=== PATIENT | male | born 1975 | race American Indian/Alaskan Native ===

== ENCOUNTER 2020-06-22 18:44 | Emergency (ER) | payer OTHER ==
--- NOTE | 2020-06-22 20:31 | XRay Report ---
CHEST 2 VIEWS INDICATION / CLINICAL INFORMATION: MAIN. Rib pain cough COMPARISON: None available. FINDINGS: SUPPORT DEVICES: None. HEART / MEDIASTINUM: No significant abnormality. LUNGS / PLEURA: No significant pulmonary or pleural abnormality. No pneumothorax. ADDITIONAL FINDINGS: No significant additional findings. Specifically, no evidence of displaced rib f racture. IMPRESSION: 1. No acute findings. Specifically, no evidence of displaced rib fracture or confluent infiltrate. Signer Name: Franko Gregg MD Signed: 06/22/2020 8:27 PM Workstation Name: [id number]
[2020-06-22 21:16] VITALS: BP 117/59
[2020-06-22] MEDS ORDERED: IBUPROFEN 800 MG TAB PO ONE (21:26)
[2020-06-22] MEDS ORDERED: HYDROcodone/ACETAMINOPHEN 5-325 MG TAB PO ONE (21:26)
--- NOTE | 2020-06-22 21:33 | Emergency Department Report ---
ED General Adult HPI - General Chief complaint: Chest Pain Stated complaint: RIB PAIN Time Seen by Provider: 06/22/20 20:45 Source: patient Mode of arrival: Ambulatory Limitations: No Limitations - History of Present Illness Initial comments: CC: "I felt something pop." HPI: This is a 44 yo male with hx of HTN who presents with right lower rib cage pain which occurred suddenly after sneezing. Mr. Kolb has had cough for 2 months since diagnosis of COVID-19. With cough he has had mild right rib cage pain for the past 2 months. THis pain was severe sharp. Worse with palpation and movement. He came immediately to the ED. No recent travel. -: Sudden, This evening Location: chest Radiation: non-radiation Severity scale (0 -10): 8 Quality: sharp Improves with: rest Worsens with: movement, other (Palpation, inspiration) Associated Symptoms: denies other symptoms - Related Data Previous Rx's Medication Instructions Recorded Last Taken Type HYDROcodone/APAP 5-325 [[place] 1 each PO Q6HR PRN #10 tablet 06/22/20 Unknown Rx 5/325] Ibuprofen [Motrin 400 MG tab] 400 mg PO TID 5 Days #15 tablet 06/22/20 Unknown Rx Allergies Allergy/AdvReac Type Severity Reaction Status Date / Time aspirin Allergy Vomiting Verified 06/22/20 21:17 ED Review of Systems ROS: Stated complaint: RIB PAIN Other details as noted in HPI Comment: All other systems reviewed and negative Constitutional: denies: fever, malaise Respiratory: denies: cough, shortness of breath Cardiovascular: chest pain Gastrointestinal: denies: abdominal pain, nausea, vomiting ED Past Medical Hx - Past Medical History Previous Medical History?: Yes Hx Hypertension: Yes Hx Kidney Stones: ("cholesterol issues") - Surgical History Past Surgical History?: Yes Hx Cholecystectomy: Yes - Social History Smoking Status: Never Smoker Substance Use Type: None - Medications Home Medications: Home Medications Medication Instructions Recorded Confirmed Last Taken Type HYDROcodone/APAP 5-325 [[place] 1 each PO Q6HR PRN #10 tablet 06/22/20 Unknown Rx 5/325] Ibuprofen [Motrin 400 MG tab] 400 mg PO TID 5 Days #15 tablet 06/22/20 Unknown Rx ED Physical Exam - General Limitations: No Limitations General appearance: alert, in no apparent distress, other (patient winces with position change) - Head Head exam: Present: atraumatic, normocephalic - Eye Eye exam: Present: normal appearance - ENT ENT exam: Present: mucous membranes moist - Neck Neck exam: Present: normal inspection, full ROM - Respiratory Respiratory exam: Present: normal lung sounds bilaterally, chest wall tenderness (right midaxillary line lower rib cage). Absent: respiratory distress, wheezes, rales, rhonchi - Cardiovascular Cardiovascular Exam: Present: regular rate, normal rhythm, normal heart sounds. Absent: systolic murmur, diastolic murmur, rubs, gallop - GI/Abdominal GI/Abdominal exam: Present: soft, normal bowel sounds. Absent: distended, tenderness, guarding, rebound - Rectal Rectal exam: Present: deferred - Extremities Exam Extremities exam: Present: normal inspection - Neurological Exam Neurological exam: Present: alert, oriented X3 - Psychiatric Psychiatric exam: Present: normal affect, normal mood - Skin Skin exam: Present: warm, dry, intact, normal color. Absent: rash ED Course Vital Signs 06/22/20 06/22/20 18:50 21:15 Temperature 97.6 F 99 F Pulse Rate 74 59 L Respiratory 20 20 Rate Blood Pressure 156/78 Blood Pressure 117/59 [Right] O2 Sat by Pulse 100 100 Oximetry ED Medical Decision Making - Radiology Data Radiology results: report reviewed CHEST 2 VIEWS INDICATION / CLINICAL INFORMATION: MAIN. Rib pain cough COMPARISON: None available. FINDINGS: SUPPORT DEVICES: None. HEART / MEDIASTINUM: No significant abnormality. LUNGS / PLEURA: No significant pulmonary or pleural abnormality. No pneumothorax. ADDITIONAL FINDINGS: No significant additional findings. Specifically, no evidence of displaced rib fracture. IMPRESSION: 1. No acute findings. Specifically, no evidence of displaced rib fracture or confluent infiltrate. - Medical Decision Making right chest wall pain after sneezing. No evidence of PTX, rib dislocation or rib fracture. CXR no acute findings according to radiologist. chest wall strain: clinical impression PERC negative for PE rx: ibuprofen, norco Vital Signs - 24 hr 06/22/20 06/22/20 18:50 21:15 Temperature 97.6 F 99 F Pulse Rate 74 59 L Respiratory 20 20 Rate Blood Pressure 156/78 Blood Pressure 117/59 [Right] O2 Sat by Pulse 100 100 Oximetry Critical care attestation.: If time is entered above; I have spent that time in minutes in the direct care of this critically ill patient, excluding procedure time. ED Disposition Clinical Impression: Chest wall muscle strain Disposition: DC-01 TO HOME OR SELFCARE Is pt being admited?: No Does the pt Need Aspirin: No Condition: Stable Instructions: Thoracic Pain (ED), Chest Pain (ED) Prescriptions: Ibuprofen [Motrin 400 MG tab] 400 mg PO TID 5 Days #15 tablet HYDROcodone/APAP 5-325 [[place] 5/325] 1 each PO Q6HR PRN #10 tablet PRN Reason: Pain
== END 2020-06-22 21:48 | disposition home or self-care (01) ==
LOC: ED 18:44
DX: S29.011A Strain of muscle and tendon of front wall of thorax, initial encounter (principal); I10 Essential (primary) hypertension; Z88.6 Allergy status to analgesic agent; Z79.899 Other long term (current) drug therapy; Z90.49 Acquired absence of other specified parts of digestive tract; X58.XXXA Exposure to other specified factors, initial encounter; Y93.89 Activity, other specified; Y92.89 Other specified places as the place of occurrence of the external cause; Y99.8 Other external cause status
CPT/HCPCS: 71046

== ENCOUNTER 2020-10-21 22:30 | Emergency (ER) | payer OTHER ==
[2020-10-21] MEDS ORDERED: ASPIRIN 325 MG TAB PO ONE (22:53)
--- NOTE | 2020-10-21 22:56 | Emergency Department Report ---
ED Chest Pain HPI - General Chief Complaint: Chest Pain Stated Complaint: CHEST PAIN Time Seen by Provider: 10/21/20 22:55 Source: patient Mode of arrival: Ambulatory Limitations: No Limitations - History of Present Illness Initial Comments: 44-year-old F [place] Citizen male was outside raking leaves when he began to experience a substernal burning chest pain which radiated to his right shoulder and chest associated with worsening pain since the onset. No presyncope no hemoptysis, no hematemesis, hematochezia. No fever, chills, sweats. No trauma MD Complaint: chest pain Pain Location: left chest Pain Radiation: none Severity: mild, moderate Quality: aching, dull Consistency: constant Improves With: nothing Worsens With: nothing re: nausea Treatments Prior to Arrival: none - Related Data Previous Rx's Medication Instructions Recorded Last Taken Type HYDROcodone/APAP 5-325 [[place] 1 each PO Q6HR PRN #10 tablet 06/22/20 Unknown Rx 5/325] Ibuprofen [Motrin 400 MG tab] 400 mg PO TID 5 Days #15 tablet 06/22/20 Unknown Rx Allergies Allergy/AdvReac Type Severity Reaction Status Date / Time aspirin Allergy Vomiting Verified 06/22/20 21:17 Heart Score - HEART Score History: Slightly suspicious EKG: Normal Age: < 45 Risk factors: 1-2 risk factors Troponin: < normal limit HEART Score: 1 ED Review of Systems ROS: Stated complaint: CHEST PAIN Other details as noted in HPI Comment: All other systems reviewed and negative ED Past Medical Hx - Past Medical History Previous Medical History?: Yes Hx Hypertension: Yes Hx Kidney Stones: ("cholesterol issues") Additional medical history: high cholesterol - Surgical History Past Surgical History?: Yes Hx Cholecystectomy: Yes - Social History Smoking Status: Never Smoker Substance Use Type: None - Medications Home Medications: Home Medications Medication Instructions Recorded Confirmed Last Taken Type HYDROcodone/APAP 5-325 [[place] 1 each PO Q6HR PRN #10 tablet 06/22/20 Unknown Rx 5/325] Ibuprofen [Motrin 400 MG tab] 400 mg PO TID 5 Days #15 tablet 06/22/20 Unknown Rx ED Physical Exam - General Limitations: No Limitations General appearance: alert, in no apparent distress - Head Head exam: Present: atraumatic, normocephalic - Eye Eye exam: Present: normal appearance, PERRL, EOMI Pupils: Present: normal accommodation - ENT ENT exam: Present: normal exam, normal orophraynx, mucous membranes moist - Neck Neck exam: Present: normal inspection, full ROM - Respiratory Respiratory exam: Present: normal lung sounds bilaterally. Absent: respiratory distress - Cardiovascular Cardiovascular Exam: Present: regular rate, normal rhythm. Absent: systolic murmur, diastolic murmur, rubs, gallop - GI/Abdominal GI/Abdominal exam: Present: soft, normal bowel sounds - Rectal Rectal exam: Present: deferred - Extremities Exam Extremities exam: Present: normal inspection - Back Exam Back exam: Present: normal inspection - Neurological Exam Neurological exam: Present: alert, oriented X3 - Psychiatric Psychiatric exam: Present: normal affect, normal mood - Skin Skin exam: Present: warm, dry, intact, normal color. Absent: rash ED Course Vital Signs 10/21/20 10/21/20 10/22/20 22:50 22:53 02:54 Temperature 98.1 F Pulse Rate 103 H 67 Respiratory 1 L 16 19 Rate Blood Pressure 138/68 Blood Pressure [Left] O2 Sat by Pulse 99 100 Oximetry 10/22/20 10/22/20 10/22/20 02:55 03:00 03:15 Temperature Pulse Rate 66 61 63 Respiratory 17 16 14 Rate Blood Pressure 128/76 122/75 122/75 Blood Pressure [Left] O2 Sat by Pulse 100 100 100 Oximetry 10/22/20 10/22/20 10/22/20 03:30 03:45 04:00 Temperature Pulse Rate 74 64 61 Respiratory 15 14 16 Rate Blood Pressure 129/76 129/76 120/71 Blood Pressure [Left] O2 Sat by Pulse 100 100 99 Oximetry 10/22/20 06:02 Temperature Pulse Rate 77 Respiratory 16 Rate Blood Pressure Blood Pressure 130/80 [Left] O2 Sat by Pulse 99 Oximetry DENIZ score - Deniz Score Age > 65: (0) No Aspirin use within the Past 7 Days: (0) No 3 or more CAD Risk Factors: (0) No 2 or more Angina events in past 24 hrs: (0) No Known CAD with more than 50% Stenosis: (0) No Elevated Cardiac Markers: (0) No ST Deviation Greater than 0.5mm: (0) No DENIZ Score: 0 ED Medical Decision Making - Lab Data Result diagrams: 10/21/20 23:08 10/21/20 23:08 Critical care attestation.: If time is entered above; I have spent that time in minutes in the direct care of this critically ill patient, excluding procedure time. ED Disposition Clinical Impression: Chest pain Disposition: TO HOME OR SELFCARE Is pt being admited?: No Does the pt Need Aspirin: No Condition: Stable Instructions: Nonspecific Chest Pain, Adult, Angina, Chest Pain (ED) Referrals: PRIMARY CAREMD [Primary Care Provider] - 3-5 Days [facility] [Provider Group] - 3-5 Days SHIRA ANTONIO MD [Staff Physician] - 3-5 Days
--- NOTE | 2020-10-21 23:26 | XRay Report ---
CHEST 1 VIEW 10/21/2020 11:10 PM INDICATION / CLINICAL INFORMATION: Chest Pain. COMPARISON: 06/22/2020 FINDINGS: SUPPORT DEVICES: None. HEART / MEDIASTINUM: No significant abnormality. LUNGS / PLEURA: No significant pulmonary or pleural abnormality. No pneumothorax. ADDITIONAL FINDINGS: No significant additional findings. IMPRESSION: 1. No acute findings. Signer Name: Papa West MD Signed: 10/21/2020 11:22 PM Workstation Name: [id number]
[2020-10-22] LABS: Basophils % (Auto) 0.8 % (0.0-1.8); Eosinophils # (Auto) 0.2 K/mm3 (0.0-0.4); Hematocrit 37.9 % (35.5-45.6); Hemoglobin 12.8 gm/dl (11.8-15.2); Lymphocytes # (Auto) 1.8 K/mm3 (1.2-5.4); Lymphocytes % (Auto) 31.5 % (13.4-35.0); Mean Corpuscular HGB Conc 34 % (32-34); Mean Corpuscular Volume 86 fl (84-94); Monocytes # (Auto) 0.4 K/mm3 (0.0-0.8); Monocytes % (Auto) 7.8 % (0.0-7.3); Platelet Count 334 K/mm3 (140-440); Red Blood Count 4.42 M/mm3 (3.65-5.03); Red Cell Distribution Width 14.4 % (13.2-15.2)
[2020-10-22 00:04] LABS: BUN/Creatinine Ratio 17; Blood Urea Nitrogen 15 mg/dL (9-20); Calcium 9.1 mg/dL (8.4-10.2); Hemolysis Index 4
[2020-10-22 06:04] VITALS: BP 130/80
== END 2020-10-22 06:02 | disposition home or self-care (01) ==
LOC: ED 22:30
DX: R07.89 Other chest pain (principal); I10 Essential (primary) hypertension; Z90.49 Acquired absence of other specified parts of digestive tract; Z79.899 Other long term (current) drug therapy; Z79.82 Long term (current) use of aspirin
CPT/HCPCS: 36415; 71045; 80048; 84484; 85025; 93005